=== PATIENT | male | born 1965 | race Two or more races ===

== ENCOUNTER 2022-11-05 15:34 | Emergency (ER) | payer MEDICAID, OTHER ==
[~2022-11-05] VITALS: Ht 170.2 cm; Wt 99.9 kg
[2022-11-05] MEDS ORDERED: KETOROLAC TROMETH 60MG/2ML VIAL IM ONE (17:15)
[2022-11-05 17:33] LABS: Urine Bacteria NONE SEEN /hpf (None Seen); Urine Blood Negative /uL (Negative); Urine Mucus FEW (None Seen); Urine Specific Gravity 1.028 (1.001-1.035); Urine WBC <1 /hpf (0 - 3)
[2022-11-05] MEDS ORDERED: cefTRIAXone W LIDOCAINE 1 GM IM IM ONE (17:45)
[2022-11-05] MEDS ORDERED: cefTRIAXone SOD 1,000 MG VL IM ONE (17:45)
[2022-11-05] MEDS ORDERED: LIDOCAINE 1% HCL (LOCAL ANESTH.) INJ 20ML MDV ID ONE (19:00)
[2022-11-05] MEDS ORDERED: BACDST PO (19:48)
[2022-11-05] MEDS ORDERED: CEPH500T PO (19:48)
[2022-11-05 20:13] VITALS: BP 138/72
== END 2022-11-05 20:17 | disposition home or self-care (01) ==
LOC: ER 15:34
DX: L02.214 Cutaneous abscess of groin (principal); Z90.89 Acquired absence of other organs
CPT/HCPCS: 10060; 76870; 81001; 96372; 99285; J0696; J1885; J2001; 56405